=== PATIENT | female | born 1955 | race Caucasian/White ===

== ENCOUNTER → 2019-04-09 09:19 | Outpatient (CLI) | payer OTHER, SELFPAY ==
--- NOTE | 2019-04-09 10:20 | DI.CT.S_ITS ---
PROCEDURE: CT ABDOMEN PELVIS W CON INDICATIONS: ABDOMINAL PAIN POST SURGERY TECHNIQUE: After the administration of oral and intravenous contrast, 5 mm thick sections acquired from the diaphragms to the symphysis. 5 mm thick coronal and sagittal reformats were performed. For radiation dose reduction, the following was used: automated exposure control, adjustment of mA and/or kV according to patient size. COMPARISON: None. FINDINGS: Image quality: Excellent. ABDOMEN: Lung bases: Lung bases are clear. Heart size is normal. Solid organs: Liver is normal in size and enhancement, and there appears to be 3 separate hemangiomas. One is located at the upper right hepatic lobe just beneath a ovoid cyst that measures up to 2 cm. This structure measures 2 cm also and shows discontinuous peripheral nodular enhancement. More inferiorly at the right anterior and right posterior hepatic segments at the same axial level (series 3 image 28) 2 smaller hepatic hemangiomas appear present with peripheral nodular enhancement.. Gallbladder contains multiple moderately large gallstones measuring up to 1.3 cm, peripherally calcified.. Biliary system is non-dilated. Pancreas enhances normally. Spleen is normal in size and enhancement. No adrenal nodules. Kidneys are normal in size and enhancement, without hydronephrosis. Peritoneum and bowel: Stomach, small bowel, and colon loops are normal in caliber and wall thickness. No free fluid or air. Nodes and vessels: No retroperitoneal or mesenteric adenopathy. Aorta and inferior vena cava are normal in caliber. Miscellaneous: No ventral hernias. PELVIS: Genitourinary: Bladder wall thickness is normal. Miscellaneous: No inguinal hernias or adenopathy. Bones: No suspicious bony lesions. No vertebral body compression fractures. IMPRESSION: 3 separate hepatic hemangiomas incidentally noted, the largest of which measures 2 cm at the superior right hepatic lobe. Incidental note is made of nonobstructive gallstones moderately large in size measuring up to 1.3 cm, without associated gallbladder inflammation or biliary obstruction. Overall, there is no identified source of anterior abdominal pain from the superior abdomen to beneath the umbilicus clinically reported. Dictated by: Jermaine Uriostegui M.D. on 04/09/2019 at 11:16 Approved by: Jermaine Uriostegui M.D. on 04/09/2019 at 11:19
== END ==
PROVIDERS: PCP Internal Medicine; Visit Provider Internal Medicine
DX: G89.18 Other acute postprocedural pain (principal); R10.33 Periumbilical pain; R10.10 Upper abdominal pain, unspecified; D18.09 Hemangioma of other sites; K80.20 Calculus of gallbladder without cholecystitis without obstruction
CPT/HCPCS: 74177; Q9967

== ENCOUNTER 2019-04-11 05:54 | Emergency (ER) | payer OTHER, SELFPAY ==
[2019-04-11 06:00] VITALS: BP 140/75; PULSE 76; RESP 18; TEMP 36.8; O2SAT 94; BMI 25.4
[2019-04-11 06:27] LABS: Add Manual Diff / Slide Review NO; Basophils Absolute Auto 0 /uL (0-100); Basophils Percent Auto 0.4 % (0-2); Eosinophils Absolute Auto 100 /uL (0-450); Eosinophils Percent Auto 0.9 % (2-4); Hematocrit 37.2 % (36-46); Hemoglobin 12.8 g/dL (12.0-16.0); Lymphocytes Absolute Auto 1300 /uL (1100-4500); Lymphocytes Percent Auto 10.5 % (25-40); Mean Corpuscular HGB Conc 34.5 % (30-36); Mean Corpuscular Hemoglobin 29.2 PG (26-34); Mean Corpuscular Volume 84.6 fL (80-100); Monocytes Absolute Auto 1100 /uL (0-900); Monocytes Percent Auto 8.9 % (3-14); Neutrophils Absolute Auto 9500 /uL (1500-7000); Neutrophils Percent Auto 79.3 % (50-75); Platelet Count 247 X10^3/uL (150-400); Red Cell Distribution Width 13.8 % (11.6-14.8); White Blood Cell Count 11.9 X10^3/uL (4.5-11.0)
[2019-04-11] MEDS: KETOROLAC 60 MG/2 ML VIAL 30 MG IV (06:29)
[2019-04-11 06:32] LABS: Alanine Aminotransferase 194 IU/L (9-52); Albumin 4.3 g/dL (3.5-5.0); Albumin Globulin Ratio 1.4 (1.0-2.8); Alkaline Phosphatase 163 U/L (38-126); Aspartate Aminotransferase 200 IU/L (14-36); BUN Creatinine Ratio 28.6 (6-22); Bilirubin Total 0.3 mg/dL (0.2-1.3); Blood Urea Nitrogen 20 mg/dL (7-17); Calcium 9.4 mg/dL (8.4-10.2); Carbon Dioxide 27 mmol/L (22-32); Chloride 105 mmol/L (98-107); Estimated Glomerular Filt Rate > 60.0 mL/min (>60); Globulin 3.1 g/dL (1.7-4.1); Glucose 127 mg/dL (80-110); HEMOLYSIS < 15 (0-50); Potassium 4.2 mmol/L (3.4-5.1); Sodium 139 mmol/L (137-145); Total Protein 7.4 g/dL (6.3-8.2)
--- NOTE | 2019-04-11 06:34 | ED_ITS ---
HPI - Abdominal Pain <Sheri Trevino DO - Last Filed: 04/11/19 18:49> General Chief Complaint: Abdominal Pain Stated Complaint: stomach pain Time Seen by Provider: 04/11/19 06:07 Source: patient Mode of arrival: ambulatory Limitations: no limitations History of Present Illness HPI narrative: Patient is a 63-year-old female who presents with left lower quadrant pain ongoing for the last number of weeks but has progressively gotten worse over last 2 weeks. She said last night was the worst ever has been. She has not taken anything for pain she says usually waxes and wanes. It started after she had an ovarian cyst removal. She had the surgery done February 25. She says since then she has had some discomfort she even had some cellulitis with a complication from surgery. She denies any nausea vomiting fever or change in stool habits. She says although she has noticed that when she eats it does make the pain a little worse. He says she had both ovaries in February and she has previously had a hysterectomy. She has no pain or frequent urination. Sometimes the pain radiates over to the right lower quadrant MD complaint: abdominal pain Location: LLQ Radiation: RLQ Migration to: RLQ Exacerbating factors: eating Related Data Previous Rx's Medication Instructions Recorded tramadol [Ultram] 50 mg PO Q6H PRN #10 tab 04/11/19 Allergies Allergy/AdvReac Type Severity Reaction Status Date / Time No Known Drug Allergies Allergy Verified 04/11/19 06:15 Review of Systems <DO Issac Rios Last Filed: 04/11/19 18:49> Review of Systems GENERAL: Denies chills, fatigue, malaise, fever, sweats, travel HEENT: Denies sinus pain, ear pain, sore throat, difficulty swallowing, neck pain RESPIRATORY: Denies dyspnea, cough, wheezing, hemoptysis, sputum. CARDIOVASCULAR: Denies chest pain, palpitations, orthopnea, edema GASTROINTESTINAL: See HPI : Denies dysuria, frequency, incontinence, hematuria, urinary retention, flank pain. MUSCULOSKELETAL: Denies weakness, joint pain, or bony pain SKIN: No rash, no erythema, no pruritus NEUROLOGIC: Denies weakness, dizziness, headache, numbness, change in speech, confusion PSYCHIATRIC: No concerning psychosocial issues. 12 point review of systems is negative except for those stated above and HPI PFSH <Sheri Trevino DO - Last Filed: 04/11/19 18:49> Medical History History of hysterectomy (Acute) Left ovarian cyst (Acute) Social History household members: spouse Exam <DO Issac Rios Last Filed: 04/11/19 18:49> Initial Vital Signs Initial Vital Signs: Vital Signs Temperature 98.2 F 04/11/19 06:00 Pulse Rate 76 04/11/19 06:00 Respiratory Rate 18 04/11/19 06:00 Blood Pressure 140/75 04/11/19 06:00 Pulse Oximetry 94 04/11/19 06:00 GENERAL: Well-appearing, well-nourished and in no acute distress. HEENT: Head atraumatic,EOMI, pupils reactive, face symmetric, moist mucous membranes CARDIOVASCULAR: Regular rate and rhythm without murmurs, rubs or gallops. RESPIRATORY: Breath sounds equal bilaterally, no wheezes rales or rhonchi. ABDOMEN: Soft, some left slightly mid suprapubic pain no guarding no rebound no right lower quadrant pain : No CVA tenderness EXTREMITIES: Normal range of motion, no clubbing or edema. Neurovascularly intact NEUROLOGICAL: Alert and oriented x4.Normal gait and speech. Cranial nerves II through XII grossly intact. SKIN: Warm, dry, no laceration, no petechiae, no rashes or lesions. <Tamiko Fraga DO - Last Filed: 04/11/19 11:00> Initial Vital Signs Initial Vital Signs: Vital Signs Temperature 98.2 F 04/11/19 06:00 Pulse Rate 76 04/11/19 06:00 Respiratory Rate 18 04/11/19 06:00 Blood Pressure 140/75 04/11/19 06:00 Pulse Oximetry 94 04/11/19 06:00 Course <DO Issac Rios Last Filed: 04/11/19 18:49> Orders Ordered: Discontinued Medications Ketorolac Tromethamine (Toradol) 30 mg IV NOW ONE Stop: 04/11/19 06:21 Last Admin: 04/11/19 06:29 Dose: 30 mg Vital Signs - 8 hr 04/11/19 06:00 04/11/19 07:51 Temperature 98.2 F Pulse Rate 76 71 Respiratory Rate 18 18 Blood Pressure 140/75 Blood Pressure [Left Arm] 107/72 Pulse Oximetry 94 96 <Tamiko Fraga, - Last Filed: 04/11/19 11:00> Orders Ordered: Discontinued Medications Ketorolac Tromethamine (Toradol) 30 mg IV NOW ONE Stop: 04/11/19 06:21 Last Admin: 04/11/19 06:29 Dose: 30 mg Vital Signs - 8 hr 04/11/19 06:00 04/11/19 07:51 Temperature 98.2 F Pulse Rate 76 71 Respiratory Rate 18 18 Blood Pressure 140/75 Blood Pressure [Left Arm] 107/72 Pulse Oximetry 94 96 MDM - Abdominal Pain <Sheri Trevino DO - Last Filed: 04/11/19 18:49> Lab Data Attestation: I reviewed the patient's lab results. Result diagrams: 04/11/19 06:14 04/11/19 06:14 Lab Results 04/11/19 04/11/19 Range/Units 06:14 06:14 WBC 11.9 H (4.5-11.0) X10^3/uL RBC 4.40 (4.0-5.2) X10^6/uL Hgb 12.8 (12.0-16.0) g/dL Hct 37.2 (36-46) % MCV 84.6 (80-100) fL MCH 29.2 (26-34) PG MCHC 34.5 (30-36) % RDW 13.8 (11.6-14.8) % Plt Count 247 (150-400) X10^3/uL Neut % (Auto) 79.3 H (50-75) % Lymph % (Auto) 10.5 L (25-40) % [place] % (Auto) 8.9 (3-14) % Eos % (Auto) 0.9 L (2-4) % Baso % (Auto) 0.4 (0-2) % Neut # (Auto) 9500 H (2772-3121) /uL Lymph # (Auto) 1300 (6862-1937) /uL [place] # (Auto) 1100 H (0-900) /uL Eos # (Auto) 100 (0-450) /uL Baso # (Auto) 0 (0-100) /uL Sodium 139 (137-145) mmol/L Potassium 4.2 (3.4-5.1) mmol/L Chloride 105 (98-107) mmol/L Carbon Dioxide 27 (22-32) mmol/L BUN 20 H (7-17) mg/dL Creatinine 0.70 (0.52-1.04) mg/dL Estimated GFR > 60.0 (>60) mL/min BUN/Creatinine Ratio 28.6 H (6-22) Glucose 127 H (80-110) mg/dL Calcium 9.4 (8.4-10.2) mg/dL Total Bilirubin 0.3 (0.2-1.3) mg/dL AST 200 H (14-36) IU/L ALT 194 H (9-52) IU/L Alkaline Phosphatase 163 H (38-126) U/L Total Protein 7.4 (6.3-8.2) g/dL Albumin 4.3 (3.5-5.0) g/dL Globulin 3.1 (1.7-4.1) g/dL Albumin/Globulin Ratio 1.4 (1.0-2.8) Lipase 102 (23-300) U/L Point of care testing: Urine Dip Bedside Urine Glucose Negative Bedside Urine Bilirubin - Negative Bedside Urine Ketone - Negative Urine Specific [place] 1.015 Bedside Urine Occult Blood - Negative Bedside Urine pH 7.5 Bedside Urine Protein - Negative Bedside Urine Urobilinogen - Negative Bedside Urine Nitrite - Negative Bedside Urine Leukocytes - Negative Esterase MDM Narrative Medical decision making narrative: Patient's CT has been reviewed from 2 days ago. It was done with both oral and IV contrast. It does suggest that she has 3 hemangiomas and a gallstone of 1.3 cm. And that there was no source identified for her anterior abdominal pain. She has no ovaries left to sound would unlikely be helpful at this time. She may actually need an outpatient MRI if she continues to have pain. I suspect she is having some referred pain or residual pain from surgery. She has been afebrile. Signed out to Dr. Fraga for further disposition. waiting on US. <Tamiko Fraga, DO - Last Filed: 04/11/19 11:00> Lab Data Attestation: I reviewed the patient's lab results. Lab Results 04/11/19 04/11/19 Range/Units 06:14 06:14 WBC 11.9 H (4.5-11.0) X10^3/uL RBC 4.40 (4.0-5.2) X10^6/uL Hgb 12.8 (12.0-16.0) g/dL Hct 37.2 (36-46) % MCV 84.6 (80-100) fL MCH 29.2 (26-34) PG MCHC 34.5 (30-36) % RDW 13.8 (11.6-14.8) % Plt Count 247 (150-400) X10^3/uL Neut % (Auto) 79.3 H (50-75) % Lymph % (Auto) 10.5 L (25-40) % [place] % (Auto) 8.9 (3-14) % Eos % (Auto) 0.9 L (2-4) % Baso % (Auto) 0.4 (0-2) % Neut # (Auto) 9500 H (6903-2968) /uL Lymph # (Auto) 1300 (1017-5729) /uL [place] # (Auto) 1100 H (0-900) /uL Eos # (Auto) 100 (0-450) /uL Baso # (Auto) 0 (0-100) /uL Sodium 139 (137-145) mmol/L Potassium 4.2 (3.4-5.1) mmol/L Chloride 105 (98-107) mmol/L Carbon Dioxide 27 (22-32) mmol/L BUN 20 H (7-17) mg/dL Creatinine 0.70 (0.52-1.04) mg/dL Estimated GFR > 60.0 (>60) mL/min BUN/Creatinine Ratio 28.6 H (6-22) Glucose 127 H (80-110) mg/dL Calcium 9.4 (8.4-10.2) mg/dL Total Bilirubin 0.3 (0.2-1.3) mg/dL AST 200 H (14-36) IU/L ALT 194 H (9-52) IU/L Alkaline Phosphatase 163 H (38-126) U/L Total Protein 7.4 (6.3-8.2) g/dL Albumin 4.3 (3.5-5.0) g/dL Globulin 3.1 (1.7-4.1) g/dL Albumin/Globulin Ratio 1.4 (1.0-2.8) Lipase 102 (23-300) U/L Point of care testing: Urine Dip Bedside Urine Glucose Negative Bedside Urine Bilirubin - Negative Bedside Urine Ketone - Negative Urine Specific [place] 1.015 Bedside Urine Occult Blood - Negative Bedside Urine pH 7.5 Bedside Urine Protein - Negative Bedside Urine Urobilinogen - Negative Bedside Urine Nitrite - Negative Bedside Urine Leukocytes - Negative Esterase MDM Narrative Medical decision making narrative: Patient signed out to myself by Dr. Trevino. Patient majority of pain is left lower quadrant but has elevated LFT's and gallstone and hemangioma's noted on prior CT from 04/09/19. US shows h emangioma/cyst, no enlargement of CBD. Paqtient US does not show any new changes. Patient has benign abdominal exam for myself, asymptomatic at this time. Discussed need for follow up with pcp or general surgeon, she has seen the surgeon that did her initial surgery. We reviewed possible causes, signs/symptoms to watch for, we did discuss repeating CT scan but patient defers after discussing risk/benefits of repeated imaging. Patient comfortable with plan. Discharge Plan Departure Patient Disposition: Home Clinical Impression: Liver hemangioma, Elevated LFTs Abdominal pain Qualifiers: Abdominal location: left lower quadrant Qualified Code(s): R10.32 - Left lower quadrant pain Gallstone Qualifiers: Cholecystitis presence: without cholecystitis Discharge Date/Time: 04/11/19 09:00 Interventions: ED Discharge Assessment Last Done: 04/11/19 08:59 Instructions: DI for Abdominal Pain-Adult Activity Restrictions/Additional Instructions: Follow up with your physician or surgeon this week. Call for an appointment if you do not have one. Your imaging today and from the shows 3 hepatic/liver hemangioma's and a gallstone. Your liver enzymes are elevated today, they should be rechecked. You may wish to discuss with your physician about additional imaging such as MRI or colonscopy. You may take ibuprofen up to 800mg every 8 hours as needed for pain. You may take prescribed pain medication in addition to ibuprofen, this medication can make you sleepy do not drive, perform hazardous activities or make any major decisions while taking it. Return to the emergency department for fevers greater than 100.4 F, rapidly increasing pain, persistent vomiting, black or bloody stools, passing out, new chest pain or shortness of breath. Prescriptions: New tramadol [Ultram] 50 mg tablet 50 mg PO Q6H PRN (Reason: pain) Qty: 10 RF: 0 Referrals: Suyapa John MD [Primary Care Provider] -
--- NOTE | 2019-04-11 06:46 | DI.US.S_ITS ---
PROCEDURE: US ABDOMEN LIMITED INDICATIONS: ELEVATED LIVER ENZYMES TECHNIQUE: Real-time focused scanning was performed of the abdomen, with image documentation. COMPARISON: [facility], CT, CT ABDOMEN PELVIS W CON, 04/09/2019, 10:23. FINDINGS: The pancreas is not well-seen secondary to bowel gas. There are multiple hyperechoic foci within the hepatic parenchyma, corresponding to hemangiomata. Multiple calculi within the gallbladder lumen are present. No gallbladder wall thickening. No biliary ductal dilatation. IMPRESSION: 1. Cholelithiasis. No evidence of cholecystitis. 2. Multiple hepatic hemangiomata as seen by CT. Dictated by: Diamante Duggan M.D. on 04/11/2019 at 7:53 Approved by: Diamante Duggan M.D. on 04/11/2019 at 7:55
[2019-04-11 06:50] LABS: Lipase 102 U/L (23-300)
[2019-04-11 07:51] VITALS: BP 107/72; PULSE 71; RESP 18; O2SAT 96
== END 2019-04-11 09:00 | disposition home or self-care (01) ==
PROVIDERS: Emergency Medicine; Emergency Provider Emergency Medicine; PCP Internal Medicine
DX: D18.03 Hemangioma of intra-abdominal structures (principal); R94.5 Abnormal results of liver function studies
CPT/HCPCS: 36591; 76705; 80053; 81003; 83690; 85025; 96374; 99282; 99284; J1885

== ENCOUNTER → 2019-04-27 17:06 | Outpatient (CLI) | payer OTHER, SELFPAY ==
--- NOTE | 2019-04-27 17:10 | DI.MRI.S_ITS ---
PROCEDURE: MR ABDOMEN WO CON INDICATIONS: CALCULUS OF GALLBLADDER TECHNIQUE: Coronal HASTE through the abdomen, axial 2-D FLASH in- and [id number], and breath-hold T2 FSE with fat saturation through the biliary system and pancreas. Oblique coronal and axial thin-slice HASTE, radial thick-slab HASTE centered on the extrahepatic bile ducts. Intravenous secretin: Not requested. COMPARISON: [facility], CT, CT ABDOMEN PELVIS W CON, 04/09/2019, 10:23. FINDINGS: Image quality: Excellent. Pancreas and biliary system: Intra- and extra-hepatic biliary ducts are non dilated. Pancreas is normal in morphology, without adjacent soft tissue edema. Pancreatic duct is normal in caliber, without developmental anomalies. Gallbladder contains multiple gallstones but shows no sign of obstruction or inflammation. Other solid organs: Liver is normal in size. The 3 hemangiomas previously detected within the liver parenchyma by CT scanning 04/09/19 are again noted. Spleen is normal in size. No adrenal nodules. Both kidneys are normal in size, without hydronephrosis. Nodes and vessels: No retroperitoneal or mesenteric adenopathy by size criteria. Aorta and inferior vena cava are normal in size. Bowel and peritoneum: Unenhanced bowel loops are normal in caliber. No free fluid. Lung bases: No basal pleural effusions. Heart size is normal. Bones and soft tissues: No ventral hernias. Bone marrow is of normal overall signal. IMPRESSION: Gallstones within the gallbladder lumen without evidence of gallbladder inflammation or obstruction. No bile duct calculus is seen. 3 small hepatic hemangiomas again noted within the liver best seen by CT scanning 04/09/19. Dictated by: Jermaine Uriostegui M.D. on 04/28/2019 at 8:53 Approved by: Jermaine Uriostegui M.D. on 04/28/2019 at 9:08
[2019-04-27 18:09] LABS: Add Manual Diff / Slide Review NO; Basophils Absolute Auto 0 /uL (0-100); Basophils Percent Auto 0.4 % (0-2); Eosinophils Absolute Auto 200 /uL (0-450); Eosinophils Percent Auto 3.3 % (2-4); Hematocrit 38.6 % (36-46); Hemoglobin 12.9 g/dL (12.0-16.0); Lymphocytes Absolute Auto 1800 /uL (1100-4500); Lymphocytes Percent Auto 26.6 % (25-40); Mean Corpuscular HGB Conc 33.5 % (30-36); Mean Corpuscular Hemoglobin 29.1 PG (26-34); Mean Corpuscular Volume 87.1 fL (80-100); Monocytes Absolute Auto 400 /uL (0-900); Monocytes Percent Auto 6.5 % (3-14); Neutrophils Absolute Auto 4200 /uL (1500-7000); Neutrophils Percent Auto 63.2 % (50-75); Platelet Count 288 X10^3/uL (150-400); Red Blood Cell Count 4.43 X10^6/uL (4.0-5.2); Red Cell Distribution Width 13.4 % (11.6-14.8); White Blood Cell Count 6.6 X10^3/uL (4.5-11.0)
[2019-04-27 18:13] LABS: Alanine Aminotransferase 46 IU/L (9-52); Albumin 4.6 g/dL (3.5-5.0); Albumin Globulin Ratio 1.6 (1.0-2.8); Alkaline Phosphatase 88 U/L (38-126); Amylase 69 U/L (30-110); Aspartate Aminotransferase 32 IU/L (14-36); BUN Creatinine Ratio 35.7 (6-22); Bilirubin Total 0.4 mg/dL (0.2-1.3); Blood Urea Nitrogen 25 mg/dL (7-17); Calcium 10.5 mg/dL (8.4-10.2); Carbon Dioxide 25 mmol/L (22-32); Chloride 107 mmol/L (98-107); Estimated Glomerular Filt Rate > 60.0 mL/min (>60); Gamma Glutamyl Transpeptidase 72 U/L (12-43); Globulin 2.9 g/dL (1.7-4.1); Glucose 93 mg/dL (80-110); HEMOLYSIS < 15 (0-50); Lipase 69 U/L (23-300); Potassium 4.5 mmol/L (3.4-5.1); Sodium 142 mmol/L (137-145); Total Protein 7.5 g/dL (6.3-8.2)
== END ==
PROVIDERS: PCP Internal Medicine; Visit Provider Internal Medicine
DX: K80.20 Calculus of gallbladder without cholecystitis without obstruction (principal); D18.09 Hemangioma of other sites; R74.0 Nonspecific elevation of levels of transaminase and lactic acid dehydrogenase [LDH]
CPT/HCPCS: 36415; 74181; 80053; 82150; 82977; 83690; 85025

== ENCOUNTER → 2019-05-05 15:34 | Outpatient (CLI) | payer OTHER, SELFPAY ==
[2019-05-05 17:13] LABS: Alanine Aminotransferase 40 IU/L (9-52); Albumin 4.4 g/dL (3.5-5.0); Albumin Globulin Ratio 1.6 (1.0-2.8); Alkaline Phosphatase 111 U/L (38-126); Aspartate Aminotransferase 29 IU/L (14-36); BUN Creatinine Ratio 38.8 (6-22); Bilirubin Total 0.2 mg/dL (0.2-1.3); Blood Urea Nitrogen 31 mg/dL (7-17); Carbon Dioxide 27 mmol/L (22-32); Chloride 106 mmol/L (98-107); Estimated Glomerular Filt Rate > 60.0 mL/min (>60); Globulin 2.8 g/dL (1.7-4.1); Glucose 85 mg/dL (80-110); HEMOLYSIS < 15 (0-50); Potassium 4.4 mmol/L (3.4-5.1); Sodium 143 mmol/L (137-145); Total Protein 7.2 g/dL (6.3-8.2)
[2019-05-08 18:12] LABS: Parathyroid Hormone Int 33 pg/mL (14-64)
[2019-05-10 15:44] LABS: Ionized Calcium 5.3 mg/dL (4.8-5.6)
== END ==
PROVIDERS: PCP Internal Medicine; Visit Provider Internal Medicine
DX: E83.52 Hypercalcemia (principal); R10.13 Epigastric pain; R10.32 Left lower quadrant pain
CPT/HCPCS: 36415; 80053; 82330; 83970

== ENCOUNTER → 2020-05-01 18:49 | Outpatient (CLI) | payer MEDICARE, SELFPAY ==
--- NOTE | 2020-05-01 | DI.MRI.S_ITS ---
PROCEDURE: MR LUMBAR SPINE WO CON INDICATIONS: Radiculopathy, lumbar region TECHNIQUE: Noncontrast sagittal T1 spin echo and T2 fast echo, sagittal STIR, axial T1 and T2 fast spin echo through the lumbar spine. In cases with scoliosis, additional coronal T2 fast spin echo may be performed. COMPARISON: None. FINDINGS: Image quality: Excellent. Alignment and Curvature: There is normal bony alignment. Bone Marrow: Marrow is of normal overall signal. No acute vertebral body compression fractures. Spinal Cord: Conus medullaris terminates at the L1 level. Visualized cord demonstrates normal signal and size. Paraspinous Soft Tissues: No paravertebral masses. L1-L2: Normal appearance. L2-L3: Loss of disc signal. Mild, diffuse disc bulge. Mild narrowing of the central canal. No neural foraminal narrowing. No neural compression. L3-L4: Loss of disc signal. Mild to moderate diffuse disc bulge. Mild bilateral facet hypertrophy. Mild to moderate central canal. Mild bilateral neural foraminal narrowing. No neural compression. Fissure noted in the posterior annulus. L4-L5: Loss of the signal. Mild to moderate diffuse disc bulge. Mild bilateral facet hypertrophy. Mild narrowing of the central canal. Mild bilateral neural foraminal narrowing. Fissure noted in posterior annulus. L5-S1: Loss of disc signal and height. Mild to moderate diffuse disc bulge. Mild bilateral facet hypertrophy. No central stenosis. Moderate to severe right and mild left neural foraminal narrowing with slight compression of the exiting right L5 nerve root. Fissure is noted this annulus. IMPRESSION: 1. Multilevel degenerative disease. 2. Multilevel facet arthropathy. 3. No significant central stenosis. 4. Moderate to severe right L5-S1 neural foraminal narrowing with slight compression of the exiting right L5 nerve root. Please correlate with clinical data. 5. L3-L4, L4-L5 and L5-S1 disc annulus fissures. Dictated by: Opal Baugh MD, PhD on 05/02/2020 at 9:10 Approved by: Opal Baugh MD, PhD on 05/02/2020 at 9:14
== END ==
PROVIDERS: PCP Internal Medicine; Referring Provider Internal Medicine; Visit Provider Internal Medicine
DX: M51.16 Intervertebral disc disorders with radiculopathy, lumbar region (principal); M47.26 Other spondylosis with radiculopathy, lumbar region; M48.07 Spinal stenosis, lumbosacral region
CPT/HCPCS: 72148

== ENCOUNTER → 2023-05-29 08:58 | Outpatient (CLI) | payer MEDICARE, OTHER, SELFPAY ==
--- NOTE | 2023-05-29 | DI.RAD.S_ITS ---
PROCEDURE: XR HIP W PEL IF DONE BILAT 2V INDICATIONS: BILATERAL HIP PAIN TECHNIQUE: AP pelvis with lateral views of the right and left hips. COMPARISON: [facility], CR, XR PELVIS WITH LATERAL HIP RIGHT, 05/17/2021, 12:55. FINDINGS: Bones: No acute fractures or dislocations. Pelvic ring appears intact. No suspicious bony lesions. Moderate joint space narrowing is seen in the abdomen laterally with subchondral sclerosis and marginal osteophyte formation. Degenerative changes are seen in the included lumbar spine. Soft tissues: The visualized bowel gas pattern is normal. No suspicious soft tissue calcifications. IMPRESSION: Moderate bilateral hip osteoarthrosis. Approved by: Yusef Ballesteros M.D. on 05/29/2023 at 13:57
== END ==
PROVIDERS: PCP Internal Medicine; Referring Provider Internal Medicine; Visit Provider Internal Medicine
DX: M25.552 Pain in left hip (principal); M25.551 Pain in right hip; M16.0 Bilateral primary osteoarthritis of hip
CPT/HCPCS: 73521